=== PATIENT | female | born 1980 | race African-American/Black ===

== ENCOUNTER 2020-12-13 00:01 | Emergency (ER) | payer MEDICAID ==
[~2020-12-13] VITALS: Ht 177.8 cm; Wt 77.0 kg
[~2020-12-13 00:01] MED LIST: CYAN-33 PO; DOCU250C14 PO; FERR325T6 PO; PANT40VI PO
[2020-12-13 04:04] LABS: BASOPHILS % 0.4 % (0.0-2.0); EOSINOPHILS % 0.7 % (0.0-5.0); HEMATOCRIT. 36.9 % (36.0-48.0); HEMOGLOBIN. 11.8 g/dL (12.0-16.0); LYMPHOCYTES % 46.2 % (20.0-50.0); MEAN CORPUSCULAR VOLUME 81.1 fL (81.0-99.0); MEAN PLATELET VOLUME 8.2 fl (7.4-10.4); MONOCYTES % 6.8 % (2.0-8.0); NEUTROPHILS % 45.9 % (40.0-76.0); PLATELET 265 x1000/uL (130-400); RED BLOOD CELL COUNT 4.55 mill/uL (4.2-5.4); RED CELL DISTRIBUTION WIDTH 13.9 % (11.6-14.6)
[2020-12-13 04:16] LABS: CHLORIDE 107 mEq/L (98-107)
[2020-12-13 04:56] LABS: HCG SCREEN NEGATIVE
[2020-12-13 05:45] VITALS: BP 136/80
== END 2020-12-13 06:00 | disposition home or self-care (01) ==
LOC: ER 00:11
DX: N92.0 Excessive and frequent menstruation with regular cycle (principal); Z88.1 Allergy status to other antibiotic agents; Z98.890 Other specified postprocedural states; Z90.49 Acquired absence of other specified parts of digestive tract
CPT/HCPCS: 36415; 80048; 84703; 85025; 86850; 86900; 93005; 99284